=== PATIENT | female | born 1955 | race African-American/Black ===

== ENCOUNTER 2021-07-29 11:17 | Observation (INO) | payer MEDICARE ==
[~2021-07-29] VITALS: Ht 165.1 cm; Wt 74.8 kg
[2021-07-29 11:20] VITALS: BP_SYST 185
[2021-07-29] MEDS ORDERED: NITROGLYCERIN 1 INCH (GM) OINT. TD ONE (11:45)
[2021-07-29] MEDS ORDERED: ASPIRIN 81 MG TAB.CHEW PO ONE ×2 (11:45→14:15)
[2021-07-29] MEDS ORDERED: ONDANSETRON HCL 4 MG/2 ML VIAL IVP ONE (11:45)
[2021-07-29] MEDS ORDERED: MORPHINE 4 MG INJ. 4 MG/ML VIAL IVP ONE (11:45)
[2021-07-29] MEDS ORDERED: NITROGLYCERIN 0.4 MG TAB.SUBL SL ONE (11:45)
--- NOTE | 2021-07-29 11:59 | NUR ---
66 YEARS OLD FEMALE PRESENTS TO ER WITH C/O CP SINCE 8 AM TODAY WITH NAUSEA, PALE/WEAK, PLACED ON WASH AND GREASER CONTINUOUS PULSE OXIMETER, EKG COMPLETED, LAB DRAWN, MEDS GIVEN WILL CONTINUE TO MONITOR.
[2021-07-29 12:18] LABS: CALCIUM 8.8 mg/dL (8.4-11.0); CREATININE 1.94 mg/dL (0.55-1.30); POTASSIUM 3.9 mmol/L (3.5-5.1)
[2021-07-29 12:20] LABS: BASOPHILS % (AUTO) 0.3 % (0.0-2.0); EOSINOPHILS % (AUTO) 0.3 % (0.0-4.0); HEMATOCRIT 41.1 % (36-48); HEMOGLOBIN 13.2 g/dL (12.0-16.0); LYMPHOCYTES # (AUTO) 0.9 K/uL (1.0-5.5); LYMPHOCYTES % (AUTO) 10.5 % (20.5-51.5); MEAN CORPUSCULAR HEMOGLOBIN 27 pg (27-31); MEAN CORPUSCULAR HGB CONC 32 % (32-36); MEAN CORPUSCULAR VOLUME 84 fL (79.0-98.0); MONOCYTES # (AUTO) 0.3 K/uL (0.0-1.0); MONOCYTES % (AUTO) 3.1 % (1.7-9.3); NEUTROPHILS # (AUTO) 7.5 K/uL (1.8-7.7); NEUTROPHILS % (AUTO) 85.8 % (40.0-70.0); PLATELET COUNT (AUTO) 148 K/uL (130-430); RED BLOOD CELL COUNT(AUTO) 4.92 MIL/uL (4.2-6.2); RED CELL DISTRIBUTION WIDTH 14.8 % (9.0-15.0); WHITE BLOOD COUNT (AUTO) 8.7 K/uL (4.8-10.8)
[2021-07-29 12:28] LABS: ALBUMIN 3.6 g/dL (3.4-4.8); TOTAL BILIRUBIN 0.3 mg/dL (0.0-1.0)
[2021-07-29] MEDS ORDERED: LORazepam 2 MG/ML VIAL IVP PRN (14:15)
[2021-07-29] MEDS ORDERED: cloNIDine HCL 0.2 MG TABLET PO PRN (14:15)
[2021-07-29] MEDS ORDERED: DEXTROSE 50% JECT 50 ML DISP.SYRIN IVP PRN (14:15)
[2021-07-29] MEDS ORDERED: NITROGLYCERIN 0.4 MG TAB.SUBL SL PRN (14:15)
[2021-07-29] MEDS ORDERED: NALOXONE HCL 0.4 MG/ML AMP (NARCAN) IVP PRN (14:15)
[2021-07-29] MEDS ORDERED: ZOLPIDEM TARTRATE 5 MG TABLET PO PRN (14:15)
[2021-07-29] MEDS ORDERED: INSULIN LISPRO SLIDING SCALE 100 UNITS/ML VIAL (humaLOG) SUBCUT PRN (14:15)
[2021-07-29] MEDS ORDERED: ACETAMINOPHEN 325 MG TABLET PO PRN (14:15)
[2021-07-29 14:45] VITALS: BP_SYST 144
--- NOTE | 2021-07-29 14:45 | NUR ---
Admission Note Received patient from ER with diagnosis of Chest Pain. Initial Plan of Care discussed-patient verbalized understanding. Put on telemetry under observation. Oriented to room, call light, pain management and safety.Personal belongings checked and recorded.
--- NOTE | 2021-07-29 14:53 | NUR ---
Patient will be admitted to care of NURSE RACHEL. Admitted to unit. Will go to room . Belongings list completed. Complete and up to date summary report printed. SBAR report to be given at bedside with opportunity for questions.
[2021-07-29] MEDS: MORPHINE 2 MG/ML INJ. SYRINGE IVP PRN ×2 (15:27→20:38)
--- NOTE | 2021-07-29 15:31 | NUR ---
CONSULTATION PAGED REASON FOR CONSULTATION:CHEST PAIN WAS CONSULT CALLED?Y PERSON WHO WAS NOTIFIED:JAROCHO CONSULTING PHYSICIAN:ELDON GROVER [employer] SPECIALTY:[facility] [employer] PHONE NUMBER:[phone] REQUESTING PHYSICIAN:AIMEE CARLISLE
--- NOTE | 2021-07-29 16:30 | NUR ---
IVF : Iv Ns started as ordered. With no problem.
[2021-07-29] MEDS: NACL 0.9% 1,000 ML IV SCH (16:38)
[2021-07-29 18:09] VITALS: BP_SYST 144
--- NOTE | 2021-07-29 18:58 | NUR ---
Evening Rounds: Patient had dinner. Blood drawn for troponin as ordered. Denies any pain this time. Call light with in reach. bed locked at lowest position. Stable.
[2021-07-29 20:00] VITALS: BP_SYST 134
--- NOTE | 2021-07-29 20:56 | NUR ---
CHEST PAIN Patient reporting 4/10 chest pain. Awake and alert. Given 2mg morphine PRN per order. O2 sat 98% on 1L NC. Will reassess.
[2021-07-29] MEDS: METOPROLOL TARTRATE 25 MG TABLET PO SCH (21:00)
[2021-07-29] MEDS: LOSARTAN POTASSIUM 50 MG TABLET (COZAAR) PO SCH (21:00)
--- NOTE | 2021-07-29 21:09 | NUR ---
Sinus Quintin, B/P meds, Dr. Ace Paged and s/w Dr. Ace to inform patient's HR is 55, B/P 134/79 and received 2mg Morphine for chest pain. Informed she has two B/P meds scheduled (Cozar & Lopressor) and he said to hold both.
--- NOTE | 2021-07-30 00:42 | NUR ---
ROUNDS / NO DISTRESS Patient resting in bed, no distress and denies chest pain. V/S stable, no further needs. Bed alarm on, call light w/in reach.
[2021-07-30 00:46] VITALS: BP_SYST 126
[2021-07-30 02:29] LABS: BASOPHILS % (AUTO) 0.2 % (0.0-2.0); EOSINOPHILS # (AUTO) 0.1 K/uL (0.0-0.4); EOSINOPHILS % (AUTO) 1.3 % (0.0-4.0); HEMATOCRIT 34.4 % (36-48); LYMPHOCYTES # (AUTO) 1.4 K/uL (1.0-5.5); LYMPHOCYTES % (AUTO) 23.1 % (20.5-51.5); MEAN CORPUSCULAR HEMOGLOBIN 27 pg (27-31); MEAN CORPUSCULAR HGB CONC 32 % (32-36); MEAN CORPUSCULAR VOLUME 83 fL (79.0-98.0); MONOCYTES # (AUTO) 0.6 K/uL (0.0-1.0); MONOCYTES % (AUTO) 9.4 % (1.7-9.3); NEUTROPHILS # (AUTO) 3.9 K/uL (1.8-7.7); PLATELET COUNT (AUTO) 183 K/uL (130-430); RED BLOOD CELL COUNT(AUTO) 4.14 MIL/uL (4.2-6.2); RED CELL DISTRIBUTION WIDTH 15.1 % (9.0-15.0)
[2021-07-30 02:41] LABS: CALCIUM 8.1 mg/dL (8.4-11.0); CREATININE 1.82 mg/dL (0.55-1.30); POTASSIUM 4.3 mmol/L (3.5-5.1)
--- NOTE | 2021-07-30 06:00 | NUR ---
OOB, restroom Patient assisted to restroom and returned to bed. She reports dizziness upon walking to restroom. Bed alarm is on.
[2021-07-30] MEDS: NACL 0.9% 1,000 ML IV SCH (06:42)
[2021-07-30] MEDS: MORPHINE 2 MG/ML INJ. SYRINGE IVP PRN (06:49)
--- NOTE | 2021-07-30 06:52 | NUR ---
c/o chest pain reporting chest pain 4/10 and Morphine given as ordered.
[2021-07-30 07:43] VITALS: BP_SYST 141
[2021-07-30] MEDS: LOSARTAN POTASSIUM 50 MG TABLET (COZAAR) PO SCH (08:24)
[2021-07-30] MEDS: METOPROLOL TARTRATE 25 MG TABLET PO SCH (08:24)
[2021-07-30] MEDS ORDERED: ASPIRIN 81 MG TAB.CHEW PO SCH (09:00)
[2021-07-30] MEDS ORDERED: CLOPIDOGREL BISULFATE 75 MG TABLET PO SCH (09:00)
[2021-07-30] MEDS ORDERED: ATORVASTATIN 20 MG TABLET PO SCH (09:00)
[2021-07-30 12:00] VITALS: BP_SYST 148
[2021-07-30 12:01] VITALS: BP_SYST 148
--- NOTE | 2021-07-30 13:30 | NUR ---
NOTE Pt's tele unit was dc'd and returned to clinical research monitor. Pt's IV in right forearm was dc'd - site benign and no swelling/redness/bleeding noted. Pt has been ambulating to restroom with FWW and standby assist. Pt was checked on q1' and PRN all shift for needs and care. Pt's bed in low position all shift. Pt denies any chest pain/discomfort all shift. No SOB/resp distress was noted all shift. IVF's were saline locked at noon. Pt was assessed by Dr Ace and Dr Goodwin this shift. Discharge instructions given and questions/concerns were answered at this time. Pt dressed in street clothes and packed all her belongings. Pt checked side table and drawers for belongings. Call light within reach.
--- NOTE | 2021-07-30 13:50 | NUR ---
Note Pt off the floor via wheelchair to private car with all her belongings and discharge paperwork at 1345. Pt stable.
[2021-07-30 13:54] LABS: BILIRUBIN,URINE NEGATIVE (NEGATIVE); CLARITY/URINE CLEAR (CLEAR); COLOR,URINE YELLOW (YELLOW); GLUCOSE,URINE NEGATIVE (NEGATIVE); KETONES,URINE NEGATIVE (NEGATIVE); LEUKOCYTE ESTERASE ,URINE 3+ (NEGATIVE); NITRITE, URINE NEGATIVE (NEGATIVE); PROTEIN URINE NEGATIVE (NEGATIVE); UROBILINOGEN,URINE 0.2 (0.2-1.0)
[2021-07-30 14:08] LABS: BARBITURATE, URINE NEGATIVE (NEG <=200); BENZODIAZEPINE, URINE NEGATIVE (NEG <=150); CANNABINOID, URINE NEGATIVE (NEG <=50); COCAINE, URINE NEGATIVE (NEG <=150); METHAMPHETAMINES SCREEN,URINE NEGATIVE (NEG <=500); OPIATE, URINE POSITIVE (NEG <=100); PHENCYCLIDINE SCREEN,URINE NEGATIVE (NEG <=25); UR TRICYCLIC ANTIDEPRESSANTS NEGATIVE (NEG <=300); URINE AMPHETAMINE NEGATIVE (NEG <=500); URINE METHADONE NEGATIVE (NEG <=200); URINE OXYCODONE SCREEN NEGATIVE (NEG <=100); URINE PROPOXYPHENE SCREEN NEGATIVE (NEG <=300)
[2021-07-30 14:19] LABS: BLOOD, URINE TRACE (NEGATIVE)
[2021-07-30 14:34] LABS: BACTERIA,URINE MANY /HPF (None Seen); WBC,URINE 20-50 /HPF (0-3)
--- NOTE | 2021-08-12 13:12 | NUR ---
IV ADMINISTRATION END TIME (Observation Patients ONLY): late entry IV infusion of Normal Saline started at 16:38 on 07/29/21 and ended at 06:30 on 07/30/21 .
--- NOTE | 2021-08-12 13:13 | NUR ---
IV ADMINISTRATION END TIME (Observation Patients ONLY): late entry IV infusion of Normal Saline started at 06:42 on 07/30/21and ended at 13:30 on 07/30/21 prior to pt discharge .
== END 2021-07-30 13:45 | disposition home or self-care (01) ==
LOC: SED 11:17 → STU 13:04
PROVIDERS: ADMIT General Practice; ATTEND General Practice
DX: R07.89 Other chest pain (principal); Z20.822 Contact with and (suspected) exposure to COVID-19; K21.9 Gastro-esophageal reflux disease without esophagitis; N17.0 Acute kidney failure with tubular necrosis; R06.02 Shortness of breath; R26.2 Difficulty in walking, not elsewhere classified; E11.22 Type 2 diabetes mellitus with diabetic chronic kidney disease; I13.10 Hypertensive heart and chronic kidney disease without heart failure, with stage 1 through stage 4 chronic kidney disease, or unspecified chronic kidney disease; N18.30 Chronic kidney disease, stage 3 unspecified; Z90.49 Acquired absence of other specified parts of digestive tract; Z79.82 Long term (current) use of aspirin; Z79.899 Other long term (current) drug therapy
CPT/HCPCS: 36415 ×2; 71045; 80048; 80053; 80061; 80307; 81000; 82962 ×2; 83735; 83880; 84484 ×2; 85025 ×2; 85379; 87086; 87426; 93005; 93306; 96361 ×2; 96374; 96375; 96376 ×2; 99285; G0378 ×2; J2270 ×3; J2405

== ENCOUNTER 2022-09-22 11:32 | Emergency (ER) | payer OTHER, MEDICAID ==
[~2022-09-22] VITALS: Ht 165.1 cm; Wt 81.6 kg
[~2022-09-22 11:32] MED LIST: CYAN100010 PO; HYDR-3927 PO; HYDR-4037 PO; IRBE1TAB PO; LIP10 PO; LISI40TA13 PO; METO25TA3 PO; PANT20TA2 PO; VITD2000 PO
--- NOTE | 2022-09-22 11:40 | NUR ---
Placed in room 02 . Placed on cardiac rehab nurse, blood pressure machine and pulse oximeter. To gown for exam. Side rails up. Report given to Shaun GAXIOLA .
--- NOTE | 2022-09-22 11:45 | NUR ---
ER at bedside examining patient.
[2022-09-22 11:47] VITALS: BP_SYST 170
--- NOTE | 2022-09-22 12:00 | NUR ---
PT CAME FROM HOME WITH CC OF SUBSTERNAL CHEST PAIN, NON-RADIATING, NON-PROVOKED, INTERMITTENT. PT IS STABLE, NAD, VSS, AAOx3, AWAITING FULL ASSESSMENT AND DISPOSITION WITH PLAN OF CARE.
[2022-09-22 12:25] VITALS: BP_SYST 162
[2022-09-22 13:43] LABS: BASOPHILS % (AUTO) 0.3 % (0.0-2.0); EOSINOPHILS # (AUTO) 0.1 K/uL (0.0-0.4); EOSINOPHILS % (AUTO) 0.8 % (0.0-4.0); HEMATOCRIT 41.1 % (36-48); HEMOGLOBIN 13.4 g/dL (12.0-16.0); LYMPHOCYTES # (AUTO) 1.4 K/uL (1.0-5.5); LYMPHOCYTES % (AUTO) 14.9 % (20.5-51.5); MEAN CORPUSCULAR HEMOGLOBIN 27 pg (27-31); MEAN CORPUSCULAR HGB CONC 33 % (32-36); MEAN CORPUSCULAR VOLUME 84 fL (79.0-98.0); MONOCYTES # (AUTO) 0.9 K/uL (0.0-1.0); MONOCYTES % (AUTO) 9.9 % (1.7-9.3); NEUTROPHILS # (AUTO) 7.1 K/uL (1.8-7.7); NEUTROPHILS % (AUTO) 74.1 % (40.0-70.0); PLATELET COUNT (AUTO) 163 K/uL (130-430); RED BLOOD CELL COUNT(AUTO) 4.92 MIL/uL (4.2-6.2); RED CELL DISTRIBUTION WIDTH 15.3 % (9.0-15.0); WHITE BLOOD COUNT (AUTO) 9.5 K/uL (4.8-10.8)
[2022-09-22 13:46] LABS: CALCIUM 8.9 mg/dL (8.4-11.0); CREATININE 2.76 mg/dL (0.55-1.30)
[2022-09-22 13:54] LABS: ALBUMIN 3.4 g/dL (3.4-4.8); TOTAL BILIRUBIN 0.4 mg/dL (0.0-1.0)
--- NOTE | 2022-09-22 14:15 | NUR ---
PT STATE PAIN 10 OUT OF 10. HURST TO SWALLOW AND COUGH. PT STATES "FEELS LIKE PRESSURE." RAILS UP
[2022-09-22] MEDS ORDERED: HYDROcodone/ACETAMIN 10-325 MG TAB PO ONE (14:45)
[2022-09-22] MEDS ORDERED: OMEP20CA15 PO (15:57)
[2022-09-22] MEDS ORDERED: TRAM50TA2 PO (15:57)
--- NOTE | 2022-09-22 16:10 | NUR ---
Patient given written and verbal discharge instructions and verbalizes understanding. ER MD discussed with patient the results and treatment provided. Patient in stable condition. ID arm band removed. IV catheter removed intact and dressing applied, no active bleeding. Rx of TRAMADOL AND OMEPRAZOLEgiven. Patient educated on pain management and to follow up with PMD. Pain Scale 3/10. Opportunity for questions provided and answered. Medication side effect fact sheet provided.
== END 2022-09-22 16:10 | disposition home or self-care (01) ==
LOC: SED 11:32
DX: K20.90 Esophagitis, unspecified without bleeding (principal); R07.89 Other chest pain; I10 Essential (primary) hypertension; K21.9 Gastro-esophageal reflux disease without esophagitis; Z79.899 Other long term (current) drug therapy
CPT/HCPCS: 36415; 71045; 80053; 84484; 85025; 93005; 99285